=== PATIENT | female | born 1995 ===

== ENCOUNTER → 2017-10-17 13:43 | Outpatient (REF) | payer BC, SELFPAY | LOC: LAB 13:43 | PROVIDERS: Visit Provider Physician Assistant | DX: L02.425 Furuncle of right lower limb (principal); L21.8 Other seborrheic dermatitis; L70.0 Acne vulgaris; H01.135 Eczematous dermatitis of left lower eyelid | CPT/HCPCS: 87070; 87075; 87077; 87147; 87186; 87205 ==